=== PATIENT | female | born 1945 | race Caucasian/White ===

== ENCOUNTER 2017-06-27 17:02 | Emergency (ER) | payer OTHER, BC ==
[2017-06-27 17:19] VITALS: BP 140/74; PULSE 88; TEMP 98; BMI 23.1
--- NOTE | 2017-06-27 17:52 | PDOC ---
History of Present Illness - General History Source: Patient - History of Present Illness Timing/Duration: 1 hour Associated Symptoms: denies: cough, fever/chills, headaches, nausea/vomiting, weakness <Jr Looney - Last Filed: 06/27/17 19:08> <Natty Redmond - Last Filed: 06/27/17 19:23> <Roselia Raymundo - Last Filed: 06/27/17 23:40> - General Chief Complaint: Nasal Bleeding Stated Complaint: NOSE BLEED Time Seen by Provider: 06/27/17 17:40 Past History - Past Medical History Anemia: No Asthma: No Cancer: No Cardiac Disorders: No CVA: No COPD: No CHF: No Dementia: No Diabetes: No GI Disorders: No Disorders: No HTN: No Hypercholesterolemia: Yes Liver Disease: No Seizures: No Thyroid Disease: No - Surgical History Abdominal Surgery: No Appendectomy: No Cardiac Surgery: No Cholecystectomy: No Lung Surgery: No Neurologic Surgery: No Orthopedic Surgery: No - Immunization History Immunization Up to Date: Yes - Suicide/Smoking/Psychosocial Hx Smoking Status: No Smoking History: Never smoked Number of Cigarettes Smoked Daily: 0 Hx Alcohol Use: No Drug/Substance Use Hx: No Substance Use Type: None Hx Substance Use Treatment: No <Jr Looney - Last Filed: 06/27/17 19:08> <Natty Redmond - Last Filed: 06/27/17 19:23> <Roselia Raymundo - Last Filed: 06/27/17 23:40> - Past Medical History Allergies/Adverse Reactions: Allergies Allergy/AdvReac Type Severity Reaction Status Date / Time Penicillins Allergy Intermediate Rash Verified 06/27/17 17:19 Home Medications: Ambulatory Orders Simvastatin [Zocor] 20 mg PO DAILY 01/22/12 Alprazolam [Xanax] 0.5 mg PO TID PRN 04/13/16 Cholecalciferol (Vitamin D3) [Vitamin D-400] 1 tab PO DAILY 07/28/16 Multivit-Min/FA/Lycopen/Lutein [Centrum Silver Tablet] 1 each PO DAILY 07/28/16 Acetaminophen [Tylenol .Regular Strength -] 650 mg PO Q6H #0 tablet 08/04/16 Ascorbic Acid [Vitamin C -] 500 mg PO BID #0 tablet 08/04/16 Aspirin [ASA -] 325 mg PO BID #0 tablet 08/04/16 Atorvastatin Ca [Lipitor] 10 mg PO HS #0 tablet 08/04/16 Magnesium Hydrox 2400MG/30Ml [Milk of Magnesia -] 30 ml PO PRN PRN #0 cup Review of Systems - Review of Systems HEENTM: Yes: Nose Bleeding. No: Nose Pain ABD/GI: No: Nausea, Vomiting Neurological: No: Headache, Dizziness <Jr Looney - Last Filed: 06/27/17 19:08> *Physical Exam - Vital Signs Last Vital Signs Temp Pulse Resp BP Pulse Ox 98.0 F 88 20 140/74 98 06/27/17 17:13 06/27/17 17:13 06/27/17 17:13 06/27/17 17:13 06/27/17 17:13 - Physical Exam General Appearance: Yes: Appropriately Dressed. No: Apparent Distress HEENT: positive: Normal Voice, Other (slow intermittent bleed from R nares, no identifiable vessel) Neck: positive: Supple Respiratory/Chest: negative: Respiratory Distress Integumentary: positive: Dry, Warm Neurologic: positive: Fully Oriented, Alert, Normal Mood/Affect <Jr Looney - Last Filed: 06/27/17 19:08> - Vital Signs Last Vital Signs Temp Pulse Resp BP Pulse Ox 98.0 F 88 20 140/74 98 06/27/17 17:13 06/27/17 17:13 06/27/17 17:13 06/27/17 17:13 06/27/17 17:13 <Natty Redmond - Last Filed: 06/27/17 19:23> - Vital Signs Last Vital Signs Temp Pulse Resp BP Pulse Ox 98.0 F 88 20 140/74 98 06/27/17 17:13 06/27/17 17:13 06/27/17 17:13 06/27/17 17:13 06/27/17 17:13 <Roselia Raymundo - Last Filed: 06/27/17 23:40> ED Treatment Course - Medications Given in the ED: ED Medications Discontinued Medications Generic Name Dose Route Start Last Admin Trade Name Freq PRN Reason Stop Dose Admin Oxymetazoline HCl 1 spray 06/27/17 18:14 06/27/17 18:50 Afrin - NS 06/27/17 18:15 1 spray ONCE ONE Administration <Natty Redmond - Last Filed: 06/27/17 19:23> - Medications Given in the ED: ED Medications Discontinued Medications Generic Name Dose Route Start Last Admin Trade Name Andriy PRN Reason Stop Dose Admin Oxymetazoline HCl 1 spray 06/27/17 18:14 06/27/17 18:50 Afrin - NS 06/27/17 18:15 1 spray ONCE ONE Administration <Roselia Raymundo - Last Filed: 06/27/17 23:40> Medical Decision Making - Medical Decision Making 06/27/17 17:47 72 s/p R hip repair,HLD, on baby asa, anxiety, wears hearing aids, s/p rhinoplasty for cosmesis ~30 years ago, no complications to date, here w/ epistaxis. Patient states while home today and preparing to take a shower, starting bleeding from R nares. Currently using tissue to wipe her nose but has not tried to hold pressure. Denies any nasal picking or other trauma. Apartment not significantly hot as per patient. No history of epistaxis in the past See exam Epistaxis On baby asa Denies trauma, uri or other obvious inciting factors Well arnel and stable w/ slow intermittent bleed from R nares w/ blood seen in orpharynx -will have pt hold nasal pressure and reassess 06/27/17 18:12 After 2, 10 minutes session of nasal compression, epistaxis has since resolved. Will keep in ED for for further observation. Patient now states every morning when when she wakes up, she is congested and has to blow her nose several times. Also reports that less than a month ago she coughed up blood and was seen by Dr. Moore of ENT and scoped w/ no findings. As per d/w ED attg, will administer afrin while in ED 06/27/17 18:14 06/27/17 18:55 Afrin administered. Will observe until 7:30pm. Upon discharge, will have pt f/u with Dr Moore 06/27/17 18:58 Signed out to MICHEL Redmond pending reassessment 06/27/17 19:06 <Aris LooneyAnupama - Last Filed: 06/27/17 19:08> *DC/Admit/Observation/Transfer <AureJr - Last Filed: 06/27/17 19:08> <Natty Redmond - Last Filed: 06/27/17 19:23> - Attestations Physician Attestion: I reviewed the case with the mid-level practitioner and agree with the mid- level practitioner's assessment, diagnosis and disposition. <Roselia Raymundo - Last Filed: 06/27/17 23:40> Diagnosis at time of Disposition: Epistaxis - Discharge Dispostion Disposition: HOME Condition at time of disposition: Improved - Referrals Referrals: Sasha Byrd MD [Primary Care Provider] - - Patient Instructions Additional Instructions: Administer 1 spray of afrin to R nares twice a day for no more than 3 days as can cause worsening congestion Use a humidifier (a machine that makes the air less dry) in your bedroom when you sleep Keep the inside of your nose moist with a nasal saline spray or vaseline Not pick your nose, or at least clip your nails before you do to avoid injury Do not blow nose If bleeding recurs, apply compression as demonstrated to in ED. If you're not able to stop bleeding on her own, david return to ED. Follow-up with Dr. moore of ENT next week
[2017-06-27] MEDS ORDERED: OXYMETAZOLINE 0.05% NASAL SOLUTION 15 ML BOTTLE NS ONE (18:14)
== END 2017-06-27 19:43 | disposition home or self-care (01) ==
LOC: JER 17:02
PROC: 0W3Q7ZZ Control Bleeding in Respiratory Tract, Via Natural or Artificial Opening (ICD-10-PCS; principal; 2017-06-27)
DX: R04.0 Epistaxis (principal); E78.00 Pure hypercholesterolemia, unspecified; F41.9 Anxiety disorder, unspecified
CPT/HCPCS: 99281-25

== ENCOUNTER 2018-06-09 00:25 | Emergency (ER) | payer OTHER, BC ==
[2018-06-09 00:38] VITALS: BP 154/73; PULSE 84; TEMP 98.2; BMI 23.7
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
[2018-06-09] MEDS ORDERED: CYCLOBENZAPRINE HCL 10 MG TABLET (FP) PO ONE (01:58)
[2018-06-09] MEDS ORDERED: ACETAMINOPHEN 500 MG TABLET (FP) PO ONE (01:58)
[2018-06-09] MEDS ORDERED: ACETAMINOPHEN 325 MG TABLET (FP) ONE (02:02)
[2018-06-09] MEDS ORDERED: CYCLOBENZAPRINE HCL 10 MG TABLET (FP) ONE (02:02)
== END 2018-06-09 04:32 | disposition home or self-care (01) ==
LOC: JER 00:25
DX: S13.4XXA Sprain of ligaments of cervical spine, initial encounter (principal); V43.62XA Car passenger injured in collision with other type car in traffic accident, initial encounter; Y92.414 Local residential or business street as the place of occurrence of the external cause; Y93.89 Activity, other specified; Y99.8 Other external cause status; E78.00 Pure hypercholesterolemia, unspecified; Z96.641 Presence of right artificial hip joint; Z88.0 Allergy status to penicillin
CPT/HCPCS: 71046-TC-FY; 72070-TC-FY; 99282-25

== ENCOUNTER 2019-11-05 21:00 | Emergency (ER) | payer OTHER, BC ==
[2019-11-05 21:14] VITALS: BP 132/72; PULSE 84; TEMP 98.2; BMI 26.5
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
--- NOTE | 2019-11-05 22:23 | PDOC ---
History of Present Illness - General Chief Complaint: Nasal Bleeding Stated Complaint: NOSE BLEED Time Seen by Provider: 11/05/19 22:17 - History of Present Illness Initial Comments: 11/05/19 22:18 74 yo F with h/o HLD who p/w epistaxis. 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 Reports clotting from nose , and resolution. Reports nausea without vomittng, now resolved. Denies AC use, or nose trauma. States that she has had prior epistaxis x 2 years ago with negative ENT workup. Had endoscopy/laryngoscopy unremarkable per pt.. ENT Dr. Geronimo. Patient denies NEGRETE, vision change, palpitations, cough, wheezing, orthopena, PND , leg swelling/pain, N/V, F,C, CP, SOB, urinary complaints, hematuria, BPR, abdominal pain, diarrhea, constipation, lightheadedness, weakness, sensory changes. PMHx: as noted above ROS: as noted SHx: Denies Etoh, IVDA, tobacco use Allergies: NKDA Past History - Past Medical History Allergies/Adverse Reactions: Allergies Allergy/AdvReac Type Severity Reaction Status Date / Time Penicillins Allergy Intermediate Rash Verified 11/05/19 21:14 Home Medications: Ambulatory Orders Simvastatin [Zocor] 20 mg PO DAILY 01/22/12 Alprazolam [Xanax] 0.5 mg PO TID PRN 04/13/16 Cholecalciferol (Vitamin D3) [Vitamin D-400] 1 tab PO DAILY 07/28/16 Multivit-Min/FA/Lycopen/Lutein [Centrum Silver Tablet] 1 each PO DAILY 07/28/16 Ascorbic Acid [Vitamin C -] 500 mg PO BID #0 tablet 08/04/16 Aspirin [ASA -] 325 mg PO BID #0 tablet 08/04/16 Anemia: No Asthma: No Cancer: No Cardiac Disorders: No CVA: No COPD: No CHF: No Dementia: No Diabetes: No GI Disorders: No Disorders: No HTN: No Hypercholesterolemia: Yes Liver Disease: No Seizures: No Thyroid Disease: No - Surgical History Abdominal Surgery: No Appendectomy: No Cardiac Surgery: No Cholecystectomy: No Lung Surgery: No Neurologic Surgery: No Orthopedic Surgery: No - Immunization History Immunization Up to Date: Yes - Psycho Social/Smoking Cessation Hx Smoking Status: No Smoking History: Never smoked Number of Cigarettes Smoked Daily: 0 Hx Alcohol Use: No Drug/Substance Use Hx: No Substance Use Type: None Hx Substance Use Treatment: No Review of Systems - Review of Systems Comments:: 11/05/19 22:29 GENERAL/CONSTITUTIONAL: No fever or chills. No weakness. HEAD, EYES, EARS, NOSE AND THROAT: + R nare epistaxis. No change in vision. No ear pain or discharge. No sore throat. CARDIOVASCULAR: No chest pain or shortness of breath RESPIRATORY: No cough, wheezing, or hemoptysis. GASTROINTESTINAL: No nausea, vomiting, diarrhea or constipation. GENITOURINARY: No dysuria, frequency, or change in urination. MUSCULOSKELETAL: No joint or muscle swelling or pain. No neck or back pain. SKIN: No rash NEUROLOGIC: No headache, vertigo, loss of consciousness, or change in strength/ sensation. ENDOCRINE: No increased thirst. No abnormal weight change HEMATOLOGIC/LYMPHATIC: No anemia, easy bleeding, or history of blood clots. ALLERGIC/IMMUNOLOGIC: No hives or skin allergy. *Physical Exam - Vital Signs Last Vital Signs Temp Pulse Resp BP Pulse Ox 98.2 F 84 18 132/72 96 11/05/19 21:12 11/05/19 21:12 11/05/19 21:12 11/05/19 21:12 11/05/19 21:12 - Physical Exam 11/05/19 22:29 GENERAL: Awake, alert, and fully oriented, in no acute distress HEAD: No signs of trauma, normocephalic, atraumatic EYES: PERRLA, EOMI, sclera anicteric, conjunctiva clear ENT: + Dried blood R nare. septum intact. Hearing grossly normal, nares patent, oropharynx clear without exudates. Moist mucosa NECK: Normal ROM, supple, no lymphadenopathy, JVD, or masses LUNGS: No distress, speaks full sentences, clear to auscultation bilaterally HEART: Regular rate and rhythm, normal S1 and S2, no murmurs, rubs or gallops, peripheral pulses normal and equal bilaterally. ABDOMEN: Soft, nontender, normoactive bowel sounds. No guarding, no rebound. No masses EXTREMITIES : Normal inspection, Normal range of motion, no edema. No clubbing or cyanosis NEUROLOGICAL: Cranial nerves II through XII grossly intact. 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 Vitals wnl, AF, A&Ox3. Physical exam notable for dried blood right nare. Absent blood posterior oropharynx. Denies nasal trauma or instrumentation. Reports nausea now resolved. Denies NEGRETE, vision change, palpitations, cough, wheezing, F/C, CP, SOB, urinary complaints, hematuria, BPR, abdominal pain, diarrhea, constipation, lightheadedness, weakness, sensory changes.Septum intact. Patient likely experienced anterior vs. posterior epistaxis now resolved. Ed Course: Patient stable for d/c with return precautions. Discharge - Discharge Information Problems reviewed: Yes Clinical Impression/Diagnosis: Nasal bleeding Disposition: HOME - Admission No - Follow up/Referral Referrals: Jany Pierre MD [Primary Care Provider] - - Patient Discharge Instructions Patient Printed Discharge Instructions: DI for Nosebleed Additional Instructions: Please return to the emergency department with any new or worsening symptoms or concerns. Please follow up with your primary care physician within 72 hours. - Post Discharge Activity
== END 2019-11-05 23:09 | disposition home or self-care (01) ==
LOC: JER 21:00
DX: R04.0 Epistaxis (principal); E78.00 Pure hypercholesterolemia, unspecified
CPT/HCPCS: 99283-25

== ENCOUNTER 2021-05-26 12:37 | Inpatient (IN) | payer OTHER, BC ==
[2021-05-26 13:07] VITALS: BMI 23.0
[2021-05-26] MEDS ORDERED: ACETAMINOPHEN 325 MG TABLET (FP) PO ONE ×2 (13:26→19:54)
[2021-05-26] MEDS ORDERED: ACETAMINOPHEN 325 MG TABLET (FP) ONE ×2 (13:57→21:10)
[2021-05-26 14:02] LABS: BASO % 0.9 % (0-2.0); HEMATOCRIT 33.9 % (32.4-45.2); HEMOGLOBIN 11.3 GM/dL (10.7-15.3); LYMPH % 9.4 % (8-40); MCH 30.5 pg (25.7-33.7); MCHC 33.3 g/dl (32.0-36.0); MEAN CELL VOLUME 91.6 fl (80-96); MEAN PLT VOLUME 8.6 fl (7.5-11.1); MONO % 5.9 % (3.8-10.2); NEUT % 82.8 % (42.8-82.8); PLATELET COUNT 233 10^3/uL (134-434); RDW 13.5 % (11.6-15.6); WHITE BLOOD COUNT 11.5 K/mm3 (4.0-10.0)
[2021-05-26 14:15] LABS: INR 1.09 (0.83-1.09); PROTHROMBIN TIME (PATIENT) 13.4 SEC (9.7-13.0)
[2021-05-26 14:25] LABS: CALCIUM 9.2 mg/dL (8.5-10.1)
[2021-05-26 14:26] LABS: ALBUMIN 3.6 g/dl (3.4-5.0); BLOOD UREA NITROGEN 15.6 mg/dL (7-18)
[2021-05-26 14:29] LABS: CREATININE 0.5 mg/dL (0.55-1.3)
[2021-05-26 14:30] LABS: BILIRUBIN,TOTAL 0.5 mg/dL (0.2-1)
[2021-05-26 14:31] LABS: TOT PROT 7.2 g/dl (6.4-8.2)
[2021-05-26 14:34] LABS: N-TERMINAL BNP 80.4 pg/ml (5-450)
[2021-05-26] MEDS ORDERED: ALPRAZolam 0.25 MG TABLET PO ONE (21:15)
[2021-05-26] MEDS ORDERED: ALPRAZolam 1 MG TABLET ONE (21:22)
[2021-05-27 06:10] LABS: BASO % 0.9 % (0-2.0); EOS % 1.4 % (0-4.5); HEMATOCRIT 34.3 % (32.4-45.2); HEMOGLOBIN 11.6 GM/dL (10.7-15.3); LYMPH % 11.2 % (8-40); MCH 30.6 pg (25.7-33.7); MCHC 33.8 g/dl (32.0-36.0); MEAN CELL VOLUME 90.5 fl (80-96); MEAN PLT VOLUME 8.5 fl (7.5-11.1); MONO % 6.8 % (3.8-10.2); NEUT % 79.7 % (42.8-82.8); PLATELET COUNT 233 10^3/uL (134-434); RBC 3.79 M/mm3 (3.60-5.2); RDW 13.3 % (11.6-15.6); WHITE BLOOD COUNT 8.2 K/mm3 (4.0-10.0)
[2021-05-27 06:26] LABS: CALCIUM 8.5 mg/dL (8.5-10.1)
[2021-05-27 06:27] LABS: BLOOD UREA NITROGEN 12.4 mg/dL (7-18)
[2021-05-27 06:30] LABS: CREATININE 0.5 mg/dL (0.55-1.3)
[2021-05-27] MEDS ORDERED: ALPRAZolam 1 MG TABLET ONE (07:34)
[2021-05-27] MEDS: ALPRAZolam 1 MG TABLET PO SCH ×3 (07:35→21:18)
[2021-05-27] MEDS ORDERED: PARoxetine HCL 10 MG TABLET ONE (07:35)
[2021-05-27] MEDS: PARoxetine HCL 10 MG TABLET PO SCH (09:27)
[2021-05-27] MEDS ORDERED: ACETAMINOPHEN 1000 MG/100 ML VIAL IVPB PRN (09:30)
[2021-05-27] MEDS ORDERED: oxyCODONE HCL 5 MG TABLET PO PRN (12:04)
[2021-05-27] MEDS: ATORVASTATIN CA 10 MG TABLET (FP) PO SCH ×3 (21:18→22:01)
[2021-05-27] MEDS: ENOXAPARIN NA (PORCINE) 40 MG/0.4 ML DISP.SYRIN SQ SCH ×2 (21:18→21:45)
[2021-05-28] MEDS: ALPRAZolam 1 MG TABLET PO SCH ×3 (06:54→18:22)
[2021-05-28] MEDS ORDERED: PT OWN MED DRAWER 7, Y5N ONE (09:29)
[2021-05-28] MEDS: PARoxetine HCL 10 MG TABLET PO SCH (10:25)
[2021-05-28] MEDS: ENOXAPARIN NA (PORCINE) 40 MG/0.4 ML DISP.SYRIN SQ SCH ×2 (10:29→12:42)
[2021-05-28] MEDS: ATORVASTATIN CA 10 MG TABLET (FP) PO SCH (21:30)
[2021-05-29] MEDS: ALPRAZolam 1 MG TABLET PO SCH ×5 (00:02→23:59)
[2021-05-29] MEDS ORDERED: PARoxetine HCL 10 MG TABLET PO SCH (10:14)
[2021-05-29] MEDS ORDERED: PT OWN MED DRAWER 7, Y5N ONE (10:38)
[2021-05-29] MEDS: MULTIVITAMINS (DAILY MVI) TABLET (FP) PO SCH (10:50)
[2021-05-29] MEDS: ENOXAPARIN NA (PORCINE) 40 MG/0.4 ML DISP.SYRIN SQ SCH (10:50)
[2021-05-29] MEDS: CHOLECALCIFEROL (VIT D3) 1,000 UNIT (25 MCG) TABLET PO SCH (10:50)
[2021-05-29] MEDS: ASPIRIN 81 MG CHEWABLE TABLETS PO SCH (11:16)
[2021-05-29] MEDS: PARoxetine HCL 10 MG TABLET PO SCH (11:16)
[2021-05-29] MEDS ORDERED: PARoxetine HCL 10 MG TABLET PO ONE (12:15)
[2021-05-29] MEDS: ATORVASTATIN CA 10 MG TABLET (FP) PO SCH ×2 (21:15→21:18)
[2021-05-30] MEDS ORDERED: ACETAMINOPHEN 325 MG TABLET (FP) PO ONE (01:46)
[2021-05-30] MEDS: ALPRAZolam 1 MG TABLET PO SCH ×4 (06:22→23:59)
[2021-05-30] MEDS: CHOLECALCIFEROL (VIT D3) 1,000 UNIT (25 MCG) TABLET PO SCH (10:39)
[2021-05-30] MEDS: ASPIRIN 81 MG CHEWABLE TABLETS PO SCH (10:39)
[2021-05-30] MEDS: ENOXAPARIN NA (PORCINE) 40 MG/0.4 ML DISP.SYRIN SQ SCH (10:39)
[2021-05-30] MEDS: MULTIVITAMINS (DAILY MVI) TABLET (FP) PO SCH (10:39)
[2021-05-30] MEDS: ESCITALOPRAM OXALATE 10 MG TABLET PO SCH (10:39)
[2021-05-30] MEDS: ATORVASTATIN CA 10 MG TABLET (FP) PO SCH (21:28)
[2021-05-31 05:47] LABS: EPI CELLS 7 /uL (0-25.1); HYALINE CASTS 1 /uL (0-3.1); PH,URINE 5.5 (5.0-8.0); URINE APPEARANCE Error; URINE BACTERIA 1957 /uL (0-1359); URINE BILIRUBIN NEGATIVE (NEGATIVE); URINE COLOR YELLOW; URINE GLUCOSE (UA) NEGATIVE (NEGATIVE); URINE KETONE NEGATIVE (NEGATIVE); URINE LEUK ESTERASE TRACE (NEGATIVE); URINE NITRITE POSITIVE (NEGATIVE); URINE PROTEIN 1+ (NEGATIVE); URINE RBC 42 /uL (0-23.9); URINE UROBILINOGEN 0.2 mg/dL (0.2-1.0); URINE WBC 41 /uL (0-25.8)
[2021-05-31] MEDS: ALPRAZolam 1 MG TABLET PO SCH ×3 (06:21→18:24)
[2021-05-31] MEDS: ENOXAPARIN NA (PORCINE) 40 MG/0.4 ML DISP.SYRIN SQ SCH (09:58)
[2021-05-31] MEDS: ASPIRIN 81 MG CHEWABLE TABLETS PO SCH (09:59)
[2021-05-31] MEDS: ESCITALOPRAM OXALATE 10 MG TABLET PO SCH (09:59)
[2021-05-31] MEDS: MULTIVITAMINS (DAILY MVI) TABLET (FP) PO SCH (09:59)
[2021-05-31] MEDS: CHOLECALCIFEROL (VIT D3) 1,000 UNIT (25 MCG) TABLET PO SCH (09:59)
[2021-05-31] MEDS: ATORVASTATIN CA 10 MG TABLET (FP) PO SCH (21:13)
[2021-06-01] MEDS: ALPRAZolam 1 MG TABLET PO SCH ×4 (00:30→17:25)
[2021-06-01] MEDS ORDERED: NITROFURANTOIN MACROCRYSTAL 50 MG CAPSULE (FP) PO ONE (09:45)
[2021-06-01] MEDS: ASPIRIN 81 MG CHEWABLE TABLETS PO SCH (11:05)
[2021-06-01] MEDS: MULTIVITAMINS (DAILY MVI) TABLET (FP) PO SCH (11:05)
[2021-06-01] MEDS: ESCITALOPRAM OXALATE 10 MG TABLET PO SCH (11:05)
[2021-06-01] MEDS: ENOXAPARIN NA (PORCINE) 40 MG/0.4 ML DISP.SYRIN SQ SCH (11:05)
[2021-06-01] MEDS: CHOLECALCIFEROL (VIT D3) 1,000 UNIT (25 MCG) TABLET PO SCH (11:05)
[2021-06-01] MEDS ORDERED: FLU VACC QS2021-22(6MOS UP)/PF 60 MCG/0.5 ML SYRINGE IM ONE (15:15)
[2021-06-01] MEDS: ATORVASTATIN CA 10 MG TABLET (FP) PO SCH (21:12)
[2021-06-01 22:16] VITALS: BP 115/64; PULSE 83; TEMP 98.2
== END 2021-06-01 22:19 | DRG 534 ==
LOC: JER 12:37 → INTOOBSV 20:35 → JERBED 20:35 → J6S 05-27 09:47 → OBSVTOIN 05-29 11:07
PROVIDERS: ADMIT Internal Medicine; ATTEND Internal Medicine
DX: S72.8X1A Other fracture of right femur, initial encounter for closed fracture (principal); M97.01XA Periprosthetic fracture around internal prosthetic right hip joint, initial encounter; E78.5 Hyperlipidemia, unspecified; F41.8 Other specified anxiety disorders; M54.9 Dorsalgia, unspecified; R33.9 Retention of urine, unspecified; W01.0XXA Fall on same level from slipping, tripping and stumbling without subsequent striking against object, initial encounter; Y92.480 Sidewalk as the place of occurrence of the external cause; Z96.649 Presence of unspecified artificial hip joint
CPT/HCPCS: 36415; 71045-TC-FY; 72192-TC; 73523-TC-FY; 73700-TC-RT; 80048; 80053; 81003; 83880; 85025; 85610; 85730; 86850; 86900; 86901; 87086; 87186; 90686; 93005; 93010; 93970-TC; 94010; 97116-GP; 97162-GP; 99285-25; C9803; G0008; G0378; U0003; U0005